=== PATIENT | male | born 1995 | race Caucasian/White ===

== ENCOUNTER 2025-10-09 16:18 | Emergency (ER) | payer MEDICAID ==
[~2025-10-09] VITALS: Ht 185.4 cm; Wt 124.0 kg
--- NOTE | 2025-10-09 16:28 | ELECTROCARDIOGRAPH REPORT ---
[facility] Test Date: 2025-10-09 Test Time: 16:22:47 Pat Name: LOLIS FRAUSTO Department: EMERGENCY ROOM [id number] Room: Gender: M Placing Judge: RISA : 1995 Requested By: JOSE LEDEZMA Order Number: [id number] Reading MD: Dr. Giorgio Villatoro Measurements Intervals [place] Rate: 124 P: 54 NM: 122 QRS: 107 QRSD: 109 T: 21 QT: 330 QTc: 474 Interpretive Statements Sinus tachycardia Left posterior fascicular block Borderline prolonged QT interval Electronically Signed On 10-09-2025 18:23:[address] Giorgio Villatoro Please click the below link to view image of tracing.
[2025-10-09 17:00] LABS: MEAN PLATELET VOLUME 8.4 FL (7.4-10.4); RED CELL DISTRIBUTION WIDTH 14.7 % (11.5-14.5)
[2025-10-09 17:09] LABS: CREATININE 0.82 MG/DL (0.60-1.10); TOTAL CARBON DIOXIDE 26.8 MMOL/L (24-32); eCRCL 152 ML/MIN; eGFR > 90 ML/MIN
[2025-10-09] MEDS: diazepam inj 5 MG/ML inj. IV ONE (17:12)
[2025-10-09] MEDS: normal saline 1000ML IV soln IVB ONE ×2 (17:18→19:04)
[2025-10-09 17:23] LABS: ETHANOL 379 MG/DL (<10)
[2025-10-09 17:34] LABS: URINE AMPHETAMINE SCREEN NEGATIVE (Neg); URINE BARBITUATE SCREEN NEGATIVE (Neg); URINE BENZODIAZEPINES SCREEN NEGATIVE (Neg); URINE CANNABINOID SCREEN POSITIVE (Neg); URINE COCAINE SCREEN POSITIVE (Neg); URINE METHADONE SCREEN NEGATIVE (Neg); URINE OPIATE SCREEN NEGATIVE (Neg); URINE PHENCYCLIDINE SCREEN NEGATIVE (Neg)
[2025-10-09] MEDS: haloperidol lactate 5mg/ml inj IVH ONE (17:36)
[2025-10-09 17:38] LABS: LEUKOCYTE ESTERASE ,URINE NEGATIVE (Neg); NITRITES, URINE NEGATIVE (Neg); OCCULT BLOOD,URINE TRACE-INTACT (Neg)
[2025-10-09 17:43] LABS: UA COLLECTION TYPE VOIDED
[2025-10-09 17:44] LABS: SQUAMOUS EPITHELIAL CELL,UR FEW /LPF (FEW)
--- NOTE | 2025-10-09 18:00 | Physician Documentation ---
History of Present Illness ~ General Chief Complaint: See Chief Complaint Stated Complaint: ETOH Time Seen by MD: 16:38 OK to notify your PCP?: Yes Source: patient, RN/MD, EMS, RN notes reviewed, EMS notes reviewed, old records Mode of Arrival: EMS History of Present Illness Initial Comments 29-year-old male patient with a history of psoriasis was brought to the emergency room by EMS from the rehab center for probable intoxication. The patient told that he has been drinking alcohol and using drugs cocaine cannabis and also fentanyl. He said he has been in and out of soberness and intoxication. No trauma or injuries noted. Past medical history unknown surgical history unknown social history positive alcohol and polysubstance abuse Medication Reconciliation Allergies: Coded Allergies: No Known Allergies (Unverified , 10/09/25) Scheduled Pantoprazole Sodium (Protonix), 1 TAB PO DAILY Scheduled PRN Chlordiazepoxide Hcl (Librium), 1 CAP PO TID PRN for anxiety Review of Systems ROS As stated above in the HPI, otherwise all systems are reviewed and negative. Physical Exam Physical Exam Vital Signs: RN Vital Signs have been reviewed: Yes, Temperature: 98.4, Source: Oral, Heart Rate: 123, Respiratory Rate: 18, BP: 116/103, Pulse Oximetry: 98, Weight: 124.000 Oxygen Flow Rate: 0 Physical Exam Reviewed vital signs and they are well within normal range. His blood pressure has been fluctuating with his excitation. Const: Only intoxicated. Head: Atraumatic Eyes: Normal Conjunctiva, no pallor no jaundice ENT: Normal External Ears, Nose and Mouth. Moist mucous membranes Neck: Full range of motion. No meningismus Resp: Clear to auscultation bilaterally. Normal work of breathing Cardio: Heart rate is 96 per minute. Regular rate and rhythm, no murmurs. Skin well perfused Abd: Soft, non-tender, non-distended. Normal bowel sounds. No rebound or guarding Skin: No petechiae . Warm and dry. Psoriasis rash the whole-body. Back: No midline or flank tenderness Ext: No cyanosis, or edema Neuro: Awake and alert Psych: Normal Mood and Affect Progress Results/Orders Reviewed/noted all lab results: Yes Results/Orders Orders - KEE LEDEZMA MD Electrocardiogram (10/09/25 16:25) Ct Head (10/09/25 18:17) Behavioral Restraints (10/09/25 ) Completed Orders - KEE LEDEZMA MD Electrocardiogram (10/09/25 16:25) Cbc/Diff (10/09/25 16:25) MG (10/09/25 16:25) BMP (10/09/25 16:25) Normal Saline 1000ml (0.9% Sodium Chlori (10/09/25 16:25) Diazepam Inj (Valium Inj) (10/09/25 16:25) Ethanol (10/09/25 16:25) Liver Panel (10/09/25 16:28) Drug Screen, Urine (10/09/25 16:42) Haloperidol Lact. (Haldol) (10/09/25 17:25) Normal Saline 1000ml (0.9% Sodium Chlori (10/09/25 17:45) Ua W/Microscopic, Cult If Ind (10/09/25 17:09) Ct Head (10/09/25 18:17) Vital Signs 10/09/25 10/09/25 10/09/25 10/09/25 16:22 16:41 17:12 17:24 Temp 98.4 Pulse 123 123 Resp 18 16 18 B/P (MAP) 170/118 116/103 (107) Pulse Ox 98 98 O2 Flow Rate 0 0 10/09/25 10/09/25 10/09/25 10/09/25 17:50 17:52 18:57 18:59 Pulse 95 91 Resp 16 16 14 B/P (MAP) 162/105 (124) 163/109 (127) Pulse Ox 88 94 96 O2 Flow Rate 0 2.0 10/09/25 10/09/25 10/10/25 10/10/25 20:00 21:00 00:13 01:50 Temp 98.4 Pulse 100 102 99 103 Resp 20 18 20 15 B/P (MAP) 166/112 (130) 163/111 (128) 134/85 (101) 149/99 (116) Pulse Ox 94 95 96 95 O2 Flow Rate 2.0 10/10/25 10/10/25 10/10/25 10/10/25 02:20 02:50 03:20 03:50 Pulse 101 97 93 91 Resp 23 15 17 17 B/P (MAP) 157/102 (120) 146/89 (108) 168/84 (112) 141/89 (106) Pulse Ox 94 94 94 93 10/10/25 10/10/25 10/10/25 10/10/25 04:20 04:50 06:15 06:55 Pulse 101 96 97 Resp 18 16 16 16 B/P (MAP) 146/91 (109) 159/91 (113) 155/83 (107) Pulse Ox 93 91 94 10/10/25 07:47 Pulse 103 Resp 19 B/P (MAP) 143/89 Pulse Ox 98 Laboratory Tests Test 10/09/25 16:45 10/09/25 17:09 White Blood Count 10.0 Red Blood Count 5.25 Hemoglobin 17.3 Hematocrit 49.5 Mean Corpuscular Volume 94.2 Mean Corpuscular Hemoglobin 33.0 H Mean Corpuscular Hemoglobin Concent 35.0 Red Cell Distribution Width 14.7 H Platelet Count 285 Mean Platelet Volume 8.4 Neutrophils (%) (Auto) 54.5 Lymphocytes (%) (Auto) 37.2 Monocytes (%) (Auto) 6.5 Eosinophils (%) (Auto) 1.0 Basophils (%) (Auto) 0.8 Neutrophils # (Auto) 5.4 Lymphocytes # (Auto) 3.7 Monocytes # (Auto) 0.6 Eosinophils # (Auto) 0.1 Basophils # (Auto) 0.1 CBC Comment Sodium Level 141 Potassium Level 3.4 L Chloride Level 99 Carbon Dioxide Level 26.8 Anion Gap 15 Blood Urea Nitrogen 8 Creatinine 0.82 Estimated GFR/1.73 m2 > 90 BUN/Creatinine Ratio 9.8 L Glucose Level 127 H Calcium Level 8.5 Magnesium Level 2.2 Total Bilirubin 0.4 Direct Bilirubin < 0.1 Aspartate Amino Transf (AST/SGOT) 66 H Alanine Aminotransferase (ALT/SGPT) 103 H Alkaline Phosphatase 166 H Total Protein 8.3 H Albumin 4.2 Globulin 4.1 Albumin/Globulin Ratio 1.0 L Chemistry Comments Ethyl Alcohol Level 379 H Urine Specimen Description Voided Urine Color Yellow Urine Clarity Clear Urine pH 7.0 Urine Specific [place] 1.010 Urine Protein 100 H Urine Glucose (UA) Negative Urine Ketones Negative Urine Occult Blood Trace-intact Urine Nitrite Negative Urine Bilirubin Negative Urine Urobilinogen 0.2 Urine Leukocyte Esterase Negative Urine RBC 0-2 Urine WBC 0-4 Urine Squamous Epithelial Cells Few Urine Bacteria Few Urine Culture Indicated Not ind Volume Urine Centrifuged 10 ml Urine Comment Urine Opiates Screen Negative Urine Methadone Screen Negative Urine Fentanyl Screen Negative Urine Barbiturates Screen Negative Urine Phencyclidine Screen Negative Urine Amphetamines Screen Negative Urine Benzodiazepines Screen Negative Urine Cocaine Screen Positive Urine Cannabinoids Screen Positive Drug Screen Comment Re-Evaluation Re-Evaluation : Re-Evaluation: Improved Progress Patient was re-evaluated in the morning in his medically cleared for [facility]. Patient was allowed to detox in our facility. Patient's laboratory work was obtained CBC was within normal limits no anemia. Chemistry potassium was slightly low at 3.4 there was some mild transaminitis with a level of 664 AST ALT 103 alk-phos 166. Bilirubin is within normal limits. Tox screen is positive for alcohol at 379 also tox screen is positive for cocaine and marijuana there was report of fentanyl abuse on top of those drugs. Urinalysis is within normal limits. CT scan of the head was obtained in his within normal limits. During his hospital course patient received Librium at one point in time he had behavioral restraints. He also received Haldol and additional fluid boluses x2. Patient received Valium. Continuous cardiac catheterization technologist interpretation shows normal sinus rhythm heart rate 90s, no ectopy, normal, my interpretation. Pulse oximetry monitor interpretation shows normal oxygenation although a bit low at times at 94% room air, normal, my interpretation. Patient has sleep apnea EKG/XRAY/CT/US/VASC/MRI EKG : Intepreting Monitor?: Yes Additional Comment [facility] Test Date: 2025-10-09 Test Time: 16:22:47 Pat Name: LOLIS FRAUSTO Department: EMERGENCY ROOM Room: Gender: M Chemotherapist: RISA : 1995 Requested By: KEE LEDEZMA Order Number: [id number] Reading MD: Dr. Giorgio Villatoro Measurements Intervals [place] Rate: 124 P: 54 ME: 122 QRS: 107 QRSD: 109 T: 21 QT: 330 QTc: 474 Interpretive Statements Sinus tachycardia Left posterior fascicular block Borderline prolonged QT interval Electronically Signed On 10-09-2025 18:23:[address] G[address]gio Villatoro [address] : Interpreted By: radiologist CT: head With Contrast?: No Impression COMPUTERIZED TOMOGRAPHY OF THE HEAD WITHOUT CONTRAST REASON FOR STUDY: Altered level of consciousness COMPARISON: None TECHNIQUE: Helical tomographic scans were obtained through the brain. 2-D coronal and sagittal reformatted images are provided. Radiation optimization: All CT scans at this facility use at least one of these dose optimization techniques: Automated exposure control mA and/or kV adjustment per patient size (includes targeted exams where dose is matched to clinical indication) or iterative reconstruction. RADIATION DOSE: CTDI: 69 mGy DLP: 1303 mGy-cm FINDINGS: No suspicious intracranial hyperdensity to suggest acute blood. There is no mass effect nor midline shift. There is no hydrocephalus. The suprasellar cistern is intact. The calvarium is intact. There are numerous dental caries. There are numerous periapical lucencies about maxillary teeth, some of which appear to erode into the left maxillary sinus. There is extensive mucosal disease in the left maxillary sinus. The visualized mastoid air cells are clear. IMPRESSION: No acute intracranial abnormality. Extensive mucosal disease in the left maxillary sinus that appears to be odontogenic in origin. Correlate clinically for acute sinusitis. Consultation with a dentist is recommended as the patient is at risk for facial infections. Electronically Signed by:DESHAWN FERNANDEZ MD Date & Time: 10/09/251857 Dictated by: DESHAWN FERNANDEZ MD Medical Decision Making Additional information obtaine: old records Findings During the physical examination, the findings suggestive of acute life- threatening condition such as JVD, tracheal deviation, acidotic breathing, noisy stridorous breath sounds, pulses paradoxus, muffled heart sounds, unequal breath sounds, abdominal rigidity and rebound tenderness, focal neurological deficits, cool clammy skin, severe hypotension, severe tachycardia or bradycardia are ab sent. Physical examination unremarkable except for the patient's excitation. ED MD interpretation of EKG done at 16:44 hours shows sinus tachycardia at a rate of 124 with left posterior fascicular block. No ischemic changes. CBC shows WBC 10 H&H 17.3 and 49.5 and platelets 285. Alcohol level is 379. Sodium 141 potassium 3.4 chloride 99 bicarb 26.8 BUN eight creatinine 0.82 and glucose 127. AST 66 ALT 103. Total bilirubin is 0.4. Magnesium 2.2. The patient is given IV fluids 2 L per nasal cannula and also urine drug screen was done and it shows positive for cocaine and cannabis. Plan is to let him sober up and then probably discharged from the emergency room when he sober. DISCLAIMER Inadvertent spelling and grammatical errors,inadvertent vocational director errors,syntax errors, grammatical errors, and spelling errors are likely due to EMR/dictation software use and do not reflect on the overall quality of patient care. Note that the electronic time recorded on this note does not necessarily reflect the actual time of the patient encounter. Differential Diagnosis Polysubstance drug abuse, electrolyte abnormalities, infectious etiologies were all considered Departure Disposition: 01 HOME / SELF CARE / HOMELESS Impression: Primary Impression: Alcoholic intoxication Qualified Codes: F10.929 - Alcohol use, unspecified with intoxication, unspecified Additional Impressions: Polysubstance abuse Hypokalemia Additional Impression Text Medically cleared for [facility] and polysubstance drug abuse including alcohol Discharge Instructions: Alcohol Intoxication, [id number], Substance Use Disorder Additional Instructions: Thank you for coming to our Emergency Department today. Push fluid. Stay away from drinking and substance usage. Please ask your nurse or provider if you have questions about your care today and do not leave until all your questions have been answered. Please use any medications given as directed and follow-up with your doctor (or the doctor you were referred to) in the next 1-3 days. Your primary care doctor can help to family resource coordinator rdinate outpatient specialty care and provide authorization for specialty referral as needed. If you do not have a primary care doctor you may follow up at a [facility]. You may also use motrin and tylenol as needed for fever and/or pain unless instructed otherwise by your provider or nurse. Indications for more urgent follow-up have been discussed, but you may return to the Emergency Department at ANY time for any worrisome or worsening symptoms. County Facilities: County Facilities: [facility]: Main [place] [place] Address:[address] [id number] [facility]: [address] Address:[facility] [place] [address] [facility]: Telemedicine Address:[address] [place] [address] [facility] Address:[address] [place] [address] Registration Billing Pharmacy Referrals [facility] Address:[address] [place] [address] Referrals: NO PRIMARY CARE PROVIDER (PCP) Prescriptions Pantoprazole Sodium (Protonix) 20 Mg Tablet.dr 1 TAB PO DAILY for 10 Days, #10 TAB 0 Refills Prov: GIORGIO VILLATORO MD 10/10/25 Chlordiazepoxide Hcl (Librium) 25 Mg Capsule 1 CAP PO TID PRN for anxiety for 5 Days, #15 CAP 0 Refills Prov: GIORGIO VILLATORO MD 10/10/25 Education Educated: Patient Educated regarding: diagnosis Signature Scribe Signature: x Attestation: The note accurately reflects work and decisions made by me.Kee Shah MD 10/10/25 21:19 KEE Scott MD Oct 09, 2025 18:00 GIORGIO VILLATORO MD Oct 10, 2025 07:14
--- NOTE | 2025-10-09 19:00 | RADIOLOGY REPORT ---
COMPUTERIZED TOMOGRAPHY OF THE HEAD WITHOUT CONTRAST REASON FOR STUDY: Altered level of consciousness COMPARISON: None TECHNIQUE: Helical tomographic scans were obtained through the brain. 2-D coronal and sagittal reformatted images are provided. Radiation optimization: All CT scans at this facility use at least one of these dose optimization techniques: Automated exposure control mA and/or kV adjustment per patient size (includes targeted exams where dose is matched to clinical indication) or iterative reconstruction. RADIATION DOSE: CTDI: 69 mGy DLP: 1303 mGy-cm FINDINGS: No suspicious intracranial hyperdensity to suggest acute blood. There is no mass effect nor midline shift. There is no hydrocephalus. The suprasellar cistern is intact. The calvarium is intact. There are numerous dental caries. There are numerous periapical lucencies about maxillary teeth, some of which appear to erode into the left maxillary sinus. There is extensive mucosal disease in the left maxillary sinus. The visualized mastoid air cells are clear. IMPRESSION: No acute intracranial abnormality. Extensive mucosal disease in the left maxillary sinus that appears to be odontogenic in origin. Correlate clinically for acute sinusitis. Consultation with a dentist is recommended as the patient is at risk for facial infections.
[2025-10-10 00:13] VITALS: TEMP 98.4
[2025-10-10] MEDS ORDERED: PANT20TA18 PO (07:18)
[2025-10-10] MEDS ORDERED: CHLO25CA10 PO (07:18)
[2025-10-10 07:47] VITALS: BP 143/89; PULSE 103; RESP 19; O2SAT 98
== END 2025-10-10 07:51 | disposition home or self-care (01) ==
LOC: ER 16:18
DX: F10.129 Alcohol abuse with intoxication, unspecified (principal); E87.6 Hypokalemia; F19.10 Other psychoactive substance abuse, uncomplicated; R51.9 Headache, unspecified; F12.90 Cannabis use, unspecified, uncomplicated; F14.90 Cocaine use, unspecified, uncomplicated; Z79.899 Other long term (current) drug therapy; Y90.9 Presence of alcohol in blood, level not specified
CPT/HCPCS: 36415; 70450; 80048; 80076; 80305; 80320; 81001; 83735; 85025; 93005; 96361; 96374; 96375; 99285; J2470; J3360; J7030; J7040